=== PATIENT | male | born 1950 | race Caucasian/White ===

== ENCOUNTER 2024-10-21 12:12 | Day surgery (SDC) | payer MEDICARE, SELFPAY ==
--- OUTSIDE RECORDS SUMMARY | 2024-09-30 13:50 | XMS_ITS | Continuity of Care Document ---
Author Organization [facility] Address [address] [place] [address]- Care Team Providers Care Geodetic Survey Director Name Role Phone Bella Davidson MD Primary Care Physician [phone] Encounter [facility] Date(s): 04/09/24 - 09/13/[address] [address]- Attending Physician: Yuli Logan DO Admitting Physician: Yuli Logan DO Encounter Type: Preadmit Daystay Allergies, Adverse Reactions, Alerts No Known Medication Allergies Immunizations Given and Recorded Vaccine Date Status Refusal Reason influenza virus vaccine, inactivated 07/01/23 Juan rded influenza virus vaccine, inactivated 06/09/21 Juan rded influenza virus vaccine, inactivated 06/26/18 Give n influenza virus vaccine, inactivated 09/10/17 Give n SARS-CoV-2 mRNA ([id number]-[id number]-zymbv) vax 02/19/22 Recorded SARS-CoV-2 (COVID-19) mRNA BNT-162b2 vac 06/09/21 Recorded SARS-CoV-2 (COVID-19) mRNA BNT-162b2 vac 1 11/08/20 Recorded SARS-CoV-2 (COVID-19) mRNA BNT-162b2 vac 2 10/18/20 Recorded pneumococcal 23-valent vaccine 11/25/20 Given tetanus/diphtheria/pertussis, acel(Tdap) 03/03/20 Given Zoster Vaccine Live 12/11/19 Recorded Zoster Vaccine Live 10/11/19 Recorded pneumococcal 13-valent vaccine 10/15/19 Given pneumococcal 13-valent vaccine 11/30/15 Given Afluria (oldterm) 10/24/16 Given Fluzone Preservative-Free (oldterm) 06/01/15 Given pneumococcal 7-valent vaccine 08/28/12 Recorded Adacel (Tdap) (oldterm) 12/31/09 Recorded 1Result Comment: given at [facility] 2Result Comment: given at [facility] Medications metFORMIN 500 mg oral tablet 1 tablet, By Mouth, 2 times a day, # 180 tablet, 1 Refills, Maintenance, 07/24/24 10:58:00 AM EST, [facility] [id number], 177.8, cm, 06/10/24 10:44:00 EDT, Height Start Date: 07/24/24 Status: Ordered Quantity: 180.0 Unit: tablet Repeat number: 1 omega-3 polyunsaturated fatty acids ethyl esters 1000 mg oral capsule TAKE 1 CAPSULE DAILY., 05/20/13 8:06:00 AM EDT Start Date: 05/20/13 Status: Ordered Repeat number: 1 ONE TOUCH VERIO TEST STRIP ONE TOUCH VERIO TEST STRIP, See Instructions, # 100 Unknown, 5 Refills, Maintenance, TEST 3 TIMES DAILY AND NEEDED E11.9, 09/23/23 10:46:00 AM EST, 177.8, cm, 02/19/23 10:28:00 EDT, Height Start Date: 09/23/23 Status: Ordered Quantity: 100.0 Unit: Unknown Repeat number: 1 OneTouch Verio Lancets See Instructions, # 100 each, Refills 6, Tot. Refills 6, Maintenance, Check blood sugars 3 times daily and prn E11.9, 09/04/24 9:29:00 AM EST, Compound, 177.8, cm, 06/10/24 10:44:00 EDT, Height Start Date: 09/04/24 Status: Ordered Quantity: 100.0 Unit: each Repeat number: 7 OneTouch Verio Test Strips See Instructions, # 300 each, Refills 3, Tot. Refills 3, Maintenance, TEST 3 TIMES DAILY AND PRN E11.9, 09/18/22 8:09:00 AM EST, Compound, 177.8, cm, 08/02/22 11:13:00 EST, Height Start Date: 09/18/22 Status: Ordered Quantity: 300.0 Unit: each Repeat number: 4 PEG-[id number] with Electrolytes Lemon (Eqv-NuLYTELY) oral powder for reconstitution 240 mL, By Mouth, Every 10 minutes, # 1 each, 0 Refills, Maintenance, 04/09/24 12:28:00 PM EDT, REC Powder, [facility]/pharmacy #[id number], Partial fill upon patient request if the prescription is for a schedule II opioid drug., 240 mL By Mouth Every 10 minutes, 177.8, cm, 03/25/24 10:36:00 EDT, Height Start Date: 04/09/24 Status: Ordered Quantity: 1.0 Unit: each Repeat number: 1 Vitamin C 1000 mg oral tablet 1 tablet = 1,000 mg, By Mouth, Daily, # 30 tablet, 0 Refills, Maintenance, 07/01/20 8:47:00 AM EST,Tablet, Partial fill upon patient request Start Date: 07/01/20 Status: Ordered Quantity: 30.0 Unit: tablet Repeat number: 1 Vitamin D3 1000, By Mouth, Daily, 0 Refills, Maintenance, 08/22/17 9:49:51 AM EST Start Date: 08/22/17 Status: Ordered Repeat number: 1 Problem List Condition Confirmation Course Effective Dates Status Health St atus Informant Hallux rigidus Confirmed Active Adhesive capsulitis of right shoulder Confirmed Active Benign localized hyperplasia of prostate Confirmed Active Former tobacco use 1 Confirmed Active Foreign body in foot Confirmed Active Esophageal reflux Confirmed Active History of basal cell cancer Confirmed Active Male erectile disorder Confirmed Active Cataract, nuclear Confirmed Active Osteopenia Confirmed Active Type 2 diabetes mellitus Confirmed Active Vitamin d deficiency Confirmed Active 1quit 38 Social History Social History Type Response Smoking Status Former smoker; Tobac co user in household: No; Type: Cigarettes; Other: quit over 20 yrs ago; entered on: 08/22/17 Sex Sex Representation Male (finding) Patient Care team information Care Team Personnel Name: Bella Davidson MD Position: [facility] Physician - Primary Care Member Role: PCP Address: [address] [place] [address] [place] [address]- Telecom: Care Team Related Persons Name: SEMAJ SHRESTHA Insurance Providers Guarantor name: FERNANDO PENARAMAN Health Plan Information #: 1 Payer: NA Member Number: [id number] Policy Number: NA Group Number: [id number] Health Plan Information #: 2 Payer: NA Member Number: [id number] Policy Number: NA Group Number: [id number]
--- OUTSIDE RECORDS SUMMARY | 2024-09-30 13:51 | XMS_ITS | Continuity of Care Document ---
Author Organization [facility] Address [address] [place] [address]- Care Team Providers Care Community Organization Aide Name Role Phone Bella Davidson MD Primary Care Physician Encounter 09/08/24 - 09/15/24 [facility] [address], [address] [place] [address]- Attending Physician: Bella Davidson MD Admitting Physician: Bella Davidson MD Referring Physician: Bella Davidson MD Encounter Type: OutPatient One Time Allergies, Adverse Reactions, Alerts No Known Medication Allergies Immunizations Given and Recorded Vaccine Date Status Refusal Reason influenza virus vaccine, inactivated 07/01/23 Juan rded influenza virus vaccine, inactivated 06/09/21 Juan rded influenza virus vaccine, inactivated 06/26/18 Give n influenza virus vaccine, inactivated 09/10/17 Give n SARS-CoV-2 mRNA ([id number]-ewdaw) vax 02/19/22 Recorded SARS-CoV-2 (COVID-19) mRNA BNT-162b2 vac 06/09/21 Recorded SARS-CoV-2 (COVID-19) mRNA BNT-162b2 vac 1 11/08/20 Recorded SARS-CoV-2 (COVID-19) mRNA BNT-162b2 vac 2 10/18/20 Recorded pneumococcal 23-valent vaccine 11/25/20 Given tetanus/diphtheria/pertussis, acel(Tdap) 03/03/20 Given Zoster Vaccine Live 12/11/19 Recorded Zoster Vaccine Live 10/11/19 Recorded pneumococcal 13-valent vaccine 10/15/19 Given pneumococcal 13-valent vaccine 11/30/15 Given Afluria (oldterm) 06/04/16 Given Fluzone Preservative-Free (oldterm) 06/01/15 Given pneumococcal 7-valent vaccine 08/28/12 Recorded Adacel (Tdap) (oldterm) 12/31/09 Recorded 1Result Comment: given at [facility] 2Result Comment: given at [facility] Medications metFORMIN 500 mg oral tablet 1 tablet, By Mouth, 2 times a day, # 180 tablet, 1 Refills, Maintenance, 07/24/24 10:58:00 AM EST, [id number], 177.8, cm, 06/10/24 10:44:00 EDT, Height Start [...] Maintenance, 04/09/24 12:28:00 PM EDT, REC Powder, [id number], Partial fill upon patient request if [...] Vitamin d deficiency Confirmed Active 1quit 38 Results Radiology Reports * Exam Date Time Procedure Performing Provider Status 09/08/24 9:36 AM Shoulder Min 2 Views Right Simard, Chr istine; Auth (Verified) Notes: (Shoulder Min 2 Views Right) Reason For Exam: Pain RESULT: Shoulder Min 2 Views Right Shoulder Min 2 Views Right, 2 views Reason: Pain COMPARISON: None. FINDINGS: No fracture or dislocation. Mild glenohumeral joint space narrowing and marginal spurring. Mild degenerative changes of the AC joint. The portion of the clavicle included on the exam is normal. Linear calcification superolateral to the right humeral head consistent with calcific tendinitis and/or ascites seen on the externally rotated review. IMPRESSION: Mild degenerative change right shoulder without acute fracture or dislocation seen. Minimal calcific tendinitis and/or bursitis. WSN: [id number] Ordering Physician: Bella Davidson Dictated By: Harshal Ngo MD, V Dictated Date/Time: 09/08/24 10:13 a Reviewed By: Harshal Ngo MD, V Signed By: Harshal Ngo MD, V Signed Date/Time: 09/08/24 10:13 am Transcribed By: BHAVIK Transcribed Date/Time: 09/08/24 10:11 am Social History Social History Type Response Smoking Status Former smoker; Tobac co user in household: No; Type: Cigarettes; Other: quit over 20 yrs ago; entered on: 08/22/17 Sex Sex Representation Male (finding) Patient Care team information Care Team Personnel Name: Bella Davidson MD Position: S Physician - Primary Care Member Role: PCP Address: [address] [place] [address] Telecom: Care Team Related Persons Name: SEMAJ SHRESTHA Insurance Providers Guarantor name: FERNANDO REARDON Health Plan Information #: 1 Payer: NA Member Number: [id number] Policy Number: JANEEN Group Number: [id number] Health Plan Information #: 2 Payer: NA Member Number: [id number] Policy Number: JANEEN Group Number: NA
--- OUTSIDE RECORDS SUMMARY | 2024-09-30 13:51 | XMS_ITS ---
Author Organization [facility] Address [address] [place] [address] Care Team Providers Care Betting Agency Manager Name Role Phone Bella Davidson M.D. Primary Care Provider Dung Ramirez Jr Unavailable ALLERGIES No Known Allergies REASON FOR VISIT Patient presents today for a recall colonoscopy MEDICATIONS Medication SIG (Take, Route, Frequency, Duration) Notes Start Date End Date Status MiraLax (colon prep) 17 GM/SCOOP mixed with Gatorade or Crystal Light Orally begin at 5:00 p.m. the day before the procedure for 1 day 09/30/2024 Active metFORMIN HCl Active Vitamin D Active Vitamin C Active Fish Oil Active SOCIAL HISTORY Tobacco Use: Social History Observation Description Date Details (start date - stop date) Never Smoker NA - NA Sex Assigned At : Social History Observation Description Sex Assigned At Unknown Tobacco Use/Smoking Question Answer Notes Patient is a nonsmoker Alcohol Screen Question Answer Notes Did you have a drink contain ing alcohol in the past year? Yes How often did you have a dri nk containing alcohol in the past year? 2 to 4 times a month (2 points) How many drinks did you have on a typical day when you were drinking in the past year? 3 or 4 drinks (1 point) Points 3 Interpretation Negative PROBLEMS Problem Type ICD Code Onset Dates Problem Status W/U Status Risk SNOMED Code Notes Problem Colon cancer screening (Z12.11) Active confirmed 163675958 VITAL SIGNS BMI 26.69 kg/m2 09/30/2024 Blood pressure systolic 111 mm Hg 09/30/19 25 Blood pressure diastolic 11 mm Hg 025 Height 70 in 09/30/2024 Weight 186 lbs 09/30/2024 Encounters Encounter Location Date Provider Diagnosis [facility] [address] [place] [address] 09/30/2024 Dung Albright Jr Colon cancer screening Z12.11 ASSESSMENTS Encounter Date Diagnosis Assessment Notes Treatment Notes Treatment Clinical Notes 09/30/2024 Colon cancer screening (ICD-10 - Z12.11) Colonoscopy discharge material was printed PLAN OF TREATMENT Medication Medication Name Sig Start Date Stop Date Notes MiraLax (colon prep) 17 GM/SCOOP mixed with Gatorade or Crystal Light Orally begin at 5:00 p.m. the day before the procedure for 1 day 09/30/2024 Treatment Notes Assessment Notes Colon cancer screening Colonoscopy disch arge material was printed Future Test Test Name Order Date COLONOSCOPY 09/30/2024 Next Appt Details Provider Name:Dung daniels Jr, 10/21/2024 01:50:00 PM, [address] [place] [address] , [place], [place], [id number],
--- OUTSIDE RECORDS SUMMARY | 2024-09-30 13:51 | XMS_ITS | Patient Health Record ---
Author Organization [facility] Address [address] [place] [address] Care Team Providers Care Ip Litigation Paralegal Name Role Phone Bella Davidson M.D. Primary Care Provider Dung Ramirez Jr Unavailable [phone] ALLERGIES No Known Allergies REASON FOR REFERRAL No Information MEDICATIONS Medication SIG (Take, Route, Frequency, Duration) [...] Problem Colon cancer screening (Z12.11) Active confirmed [id number] VITAL SIGNS Blood pressure diastolic 11 mm Hg 09/30/2024 Height 70 in 09/30/2024 Blood pressure systolic 111 mm Hg 09/30/2024 Weight 186 lbs 09/30/2024 BMI 26.69 kg/m2 09/30/2024 Encounters Encounter Location Date Provider Diagnosis [facility] [address] [place] [address] 09/30/2024 uDng Albright Jr Colon cancer screening Z12.11 ASSESSMENTS Encounter Date Diagnosis Assessment Notes Treatment Notes Treatment Clinical Notes 09/30/2024 Colon cancer screening (ICD-10 - Z12.11) Colonoscopy discharge material was printed PLAN OF TREATMENT Future Test Test Name Order Date COLONOSCOPY 09/30/2024 Next Appt Details Provider Name:Dung daniels Jr, 10/21/2024 01:50:00 PM, [address] [place] [address] , [place], [place], [id number], Insurance Providers Payer Name Payer Address Payer Phone Subscriber Number Group Number Insured Name Patient Relationship to Insured Coverage Start Date Coverage End Date [facility] [address] [place], [place] [phone] [id number] FERNANDO REARDON Self - patient is the insured MEDICAL (GENERAL) HISTORY Medical History History ICD Code hx of kidney stone type II diabetes Surgical History Surgery Date(Month/Year) knee hernia repair foot surgery right /object removed from foot
--- OUTSIDE RECORDS SUMMARY | 2024-09-30 13:51 | XMS_ITS | Clinical Summary ---
Author Organization [facility] Address [address] [place] [address] Care Team Providers Care Fans Clerk Name Role Phone Unavailable Primary Care Provider Unavailabl e Social History Tobacco Use Types Packs/Day Years Used Date Smoking Tobacco: Never Assessed Sex and Gender Information Value Date Recorded Sex Assigned at Not on file Legal Sex Male 10:15 AM EST Gender Identity Not on file Sexual Orientation Not on file Plan of Treatment Health Maintenance Due Date Last Done Comments Colorectal Cancer: COLONOSCO PY Screening every 10 yrs (or Modifier) 1948 Depression: Screening Annual ly using PHQ-2/9 in Adults 18 yrs or above (or HM Modifier)([facility]) 1966 Hepatitis C Virus Infection in Adolescents and Adults: Screening (or Modifier) ([facility]) 1966 SDOH Screening Reminder: Lakshmi gaitan for all adults ([facility]) 1966 Tobacco Smoking Cessation: i n Adults excluding Women: Behavioral and Pharmacotherapy Interventions ([facility]) 1966 Lipid Screening: Every 5 yrs for Men aged 35+ (or HM Modifier) ([facility]) 1984 Colorectal Cancer Screening 45 -75 Yrs (or HM Modifier) 1993 Colorectal Cancer: FLEXIBLE SIGMOIDOSCOPY Screening every 5 yrs 1993 Colorectal Cancer: Fecal Immunochemical Test (FIT) Annually [facility] 1993 Colorectal Cancer: High-sens itivity gFOBT Screening Annually [facility] 1993 Colorectal Cancer: Stool Col oguard Screening every 3 yrs 1993 Colorectal Cancer:CT Colonog alonso Screening every 5 yrs 1993 Zoster/Shingles Vaccine Seri es Screening: Adults aged 18+ yrs (or HM Modifiers)([facility]) (1 of 2) 1998 Pneumococcal Vaccination Scr eening: Patients 65+ yrs of age ([facility]) (2 of 2 - PCV) 11/25/2021 11/25/2020 RSV Vaccines (1 - 1-dose 75+ series) 11/03/2023 Flu Vaccination: Ages 65+: Y early High Dose Recommended (or Modifier)([facility]) 03/12/2024 COVID-19 Vaccine Screening: Initial Series and Booster Status ([facility]) ( - 2023- season) 2024 06/09/2021, 11/08/2020, 10/18/2020 DTaP/Tdap/Td Vaccines ([facility]) (3 - Td or Tdap) 03/03/2030 03/03/2020, 12/31/2009 Medical Devices Not on file Insurance [facility] MEDICARE
--- OUTSIDE RECORDS SUMMARY | 2024-09-30 13:51 | XMS_ITS ---
Author Organization [facility] Address [address] [facility] [place] [address] Care Team Providers Care Referral Clerk Name Role Phone Bella Davidson Primary Care Provider Sahra Scott Unavailable [phone] Allergies No Known Allergies REASON FOR VISIT Post-op Medications Medication SIG (Take, Route, Frequency, Duration) Notes Start Date End Date Status Ibuprofen 800 MG 1 tablet Orally Thre e times a day as needed for pain post op for 10 days 03/30/2024 Active Vitamin D 25 MCG (1000 UT) 1 tablet Orally Once a day Active Neurontin 300 MG 1 capsule Orally Onc e a day at night as needed for pain post op for 10 days 03/30/2024 Active Vitamin E 1000 UNIT as directed Orally Not-Taking Keflex 500 MG 1 capsule Orally cydney ry 12 hrs for 7 days 03/30/2024 Not-Taking Vitamin C Active metFORMIN HCl 1000 MG 1 tablet with a me al Orally Once a day Active Fish Oil 1000 MG 1 capsule Orally Thr ee times a day Active Social History Tobacco Use: Social History Observation Description Date Details (start date - stop date) Former Smoker NA - NA Tobacco Use/Smoking Question Answer Notes Are you a: former smoker Additional Findings: Tobacco Non-User Current no n-smoker Alcohol Screen Question Answer Notes Did you have a drink containing alcohol in the p ast year? Yes Points 0 Interpretation Negative Tobacco use other than smoking: Question Answer Notes Are you an other tobacco user? No Vital Signs Height 5ft 10in in 04/27/2024 Weight 184 lbs 04/27/2024 BMI 26.4 kg/m2 04/27/2024 Encounters [facility]counter [facility] Date [facility] [address] [place] [address] [place] [address] 04/27/2024 Sahra Montoya Foreign body in right foot, sequela S90.851S and Skin lesion L98.9 Assessments Encounter Date Diagnosis (ICD Code) Assessment Notes Treatment Notes Treatment Clinical Notes Section Notes 04/27/2024 Foreign body in right foot, sequela (ICD-10 - S90.851S) 04/27/2024 Skin lesion (ICD-10 - L98.9) Plan Of Treatment Pending Test Test Name Order Date X ray : Foot, right 3V 04/27/2024 Next Appt Details Follow Up: 1 Week, Reason: Procedure Notes * Category Sub-Category Detail Notes Dressing Change: Type: dry sterile karen ssing , a light compressive dressing Topical: bacitacin applied Progress Notes * Obed WOMACKDOB:1950 (73 yo M)Acc No.[id number]:04/27/2024 Progress Notes Patient:?ShantaObed Provider:?Sahra Montoya DPM :1950???Age:73 Y???Sex:Male Ashutosh e:04/27/2024 Address:[address] , [place], [place] Pcp:Bella Davidson Subjective: * Chief Complaints: * ???Post-op * HPI: ???Post-op:?The patient presents for post-op of?Right , Excision of skin lesion and , Deep foreign body excision.?Date of Surgery?:?04/22/2024 ?Current symptoms include?Pt denies fever, chills, nausea, calf pain, SOB, or increased anxiety, Pt states pain under control.? Pt presents PWB with surgical shoe and cane, relates minimal pain. Pt relates no issues. * ROS:?General/Constitutional:?Nausea?denies.?Vomiting?denies.?Hunger Thirst?denies.?Loss appetite?denies.?Chills?denies.?Fatigue?denies.?Fever?denies.?Night Sweats?denies.?Unexplained weight loss?denies.?Unexplained weight gain?denies.?HEENTM:?Dentures?admits.?Dizziness?denies.?Glasses/contacts?denies.?Retinopathy?de nies.?Blurred/double vision?denies.?TMJ?denies.?Discharge/drainage?denies.?Implants?denies.?Sore throat?denies.?Dental implants?admits.?Hard of hearing ?denies.?Difficulty chewing/swallowing/speaking?denies.?Nose bleeds?denies.?Sore mouth?denies.?Respiratory:?On Oxygen?denies.?Pneumonia/pleurisy?denies.?Bronchitis?denies.?Emphysema?denies.?C oughing?denies.?Cough blood?denies.?Shortness of breath?denies.?Wheezing?denies.?Cardiovascular:?Pacemaker?denies.?MVP?denies.?WPW?denies.?CHF?denies.?Heart attack?denies.?Septal defect?denies.?Rapid beat?denies.?Chest pain ?denies.?Atrial Fib.?denies.?Murmur/Palpitations?denies.?Gastrointestinal:?Hemorrhoids?denies.?Stomach/Abdominal pain?denies.?Dark blood stool?denies.?Irritable bowel ?denies.?Constipation?denies.?Diarrhea?denies.?Hematology:?Swelling?denies.?Clots?denies.?Varicose Veins?denies.?Bruising?denies.?Bleeding problem?denies.?Genitourinary:?Blood urine?denies.?Frequent/Painfu/urination/bladder control?denies.?Kidney stones?denies.?Infection (UTI)?denies.?Nephropathy?denies.?sex trans dis (STD)?denies.?Prostate?denies.?Musculoskeletal:?Hammertoes?admits.?Bunions?denies.?Back Pain?denies.?Muscle Cramps/ Resting?denies.?Muscle cramps / walking?denies.?Generalized aches and pains?denies.?Weakness?denies.?Integ.:?Rea?denies.?Scars?denies.?Corns/calluses?denies.?Ingrown nails?denies.?Painful nails?denies.?Open Sores?denies.?Rashes?denies.?Neurologic:?Difficulty sleeping?denies.?Brain disorder?denies.?Numbness?denies.?Balance trouble?denies.?Confusion?denies.?Fainting/blackouts?denies.?Tingling?denies.?Tr emors?denies.? * Medical History:? * Surgical History:?Hernia Rep air removal of foreign body rght midfoot P/B 04/22/24 * Hospitalization/Major Diagno stic Procedure:?No Hospitalization History. * Family History:?Mother: dece ased.?Father: .? * Social History:?Tobacco Use:?Tobacco Use/Smoking?Are you a:?former smoker ?Additional Findings: Tobacco Non-User?Current non-smoker ?Tobacco use other than smoking?Are you an other tobacco user??No ???Drugs/Alcohol:?Drugs?Have you used drugs other than those for medical reasons in the past 12 months??Yes ?Marijuana??Yes ?Alcohol Screen?Did you have a drink containing alcohol in the past year??Yes ?Points?0 ?Interpretation?Negative ???Miscellaneous:?Caffeine: yes. ?Exercise: one hour tread mill. ?Marital status: . ?Occupation: Retired. * Medications:?TakingVitamin C Fish Oil 1000 MG Capsule 1 capsule Orally Three times a daymetFORMIN HCl 1000 MG Tablet 1 tablet with a meal Orally Once a dayVitamin D 25 MCG (1000 UT) Tablet 1 tablet Orally Once a dayIbuprofen 800 MG Tablet 1 tablet Orally Three times a day as needed for pain post opNeurontin 300 MG Capsule 1 capsule Orally Once a day at night as needed for pain post opTaking Vitamin C Taking Fish Oil 1000 MG Capsule 1 capsule Orally Three times a dayTaking metFORMIN HCl 1000 MG Tablet 1 tablet with a meal Orally Once a dayTaking Vitamin D 25 MCG (1000 UT) Tablet 1 tablet Orally Once a dayTaking Ibuprofen 800 MG Tablet 1 tablet Orally Three times a day as needed for pain post opTaking Neurontin 300 MG Capsule 1 capsule Orally Once a day at night as needed for pain post opNot-Taking/PRNKeflex 500 MG Capsule 1 capsule Orally every 12 hrsVitamin E 1000 UNIT Capsule as directed Orally Medication List reviewed and reconciled with the patientNot-Taking/PRN Keflex 500 MG Capsule 1 capsule Orally every 12 hrsNot-Taking/PRN Vitamin E 1000 UNIT Capsule as directed Orally Medication List reviewed and reconciled with the patient * Allergies:?N.K.D.A.yes[Aller gies Verified] Objective: * Vitals:?Ht: 5ft 10in, Wt:184 , BMI:26.4, Shoe size: 11, Ht-cm: 177.8 cm, Wt-k.46 kg. * Examination: ???Dressing: ?APPEARANCE?Clean, dry, and intact, with dry to moist blood present, no malodor.?Dermatologic: ?SURGICAL SITE?Skin and Sutures intact, Incision edges are well aligned and adhered, CFT intact , No signs or symptoms consistent with infection , (+), Mild Pain on palpation/ecchymosis/edema, (-), erythema/hematoma/dehiscence/cellulitis.?X-Rays - IMAGING REPORT: ?Clinical Indication(s):?Evaluate Biomechanical Deformity.?Views:?3 views of Foot , RIGHT , AP , LAT , LO.?Findings:?normal bone and soft tissue density consistent for patients age and sex , no evidence of foreign body.?Fracture:?Negative fractures identified.? Assessment: * Assessment: 1.?Skin lesion - L98.9?2.?Fo reign body in right foot, sequela - S90.851S (Primary)? Plan: * Treatment: * Procedures:?Dressing Change::?Type:?dry sterile dressing , a light compressive dressing.?Topical:?bacitacin applied.? * Procedure Codes:?46648 X-RAY EXAM OF RIGHT FOOT 3V, Modifiers: 26 , RT * Preventive Medicine:? ??Counseling:?Post-op:?I reviewed with the patient the usual surgical post-op course. The patient is to call with any questions/complications, and will follow-up as scheduled, cast boot and cane with limited ambulation, perform ROM (3-4 times a day; 20-25 reps each) exercises at the foot joint and ankle, The Pt. was counseled on the x- rays, continued treatment options, and the importance of following all homecare instructions, Pt to continue to ice and elevate foot to help with post op swelling and pain.? * Follow Up:?1 Week * Images: * Sign off status: Completed true * Provider:?Sahra Montoya DPM Date:? Generated for Vishal jordan/Dipak/Mykel on:?09/30/2024 01:51 PM EST History and Physical Notes * HPI (History of Present Illness) Category Sub-Category Detail Notes Category Not es Post-op The patient presents for post-op of Right , Excision of skin lesion and , Deep foreign body excision Pt presents PWB with surgical shoe and cane, relates minimal pain. Pt relates no issues Current symptoms include Pt denies fever , chills, nausea, calf pain, SOB, or increased anxiety, Pt states pain under control Date of Surgery :: 04/22/2024 Examination Category Sub-Category Detail Notes Category Not es Dermatologic SURGICAL SITE Skin and Sutures intact, Incision edges are well aligned and adhered, CFT intact , No signs or symptoms consistent with infection , (+), Mild Pain on palpation/ecchymosis/edema, (-), erythema/hematoma/dehiscence/chelo lulitis X-Rays - IMAGING REPORT Findings: normal b one and soft tissue density consistent for patients age and sex , no evidence of foreign body Fracture: Negative fractures i dentified Views: 3 views of Foot , RI GHT , AP , LAT , LO Clinical Indication(s): Evaluate Biomech anical Deformity Dressing APPEARANCE Clean, dry, and intact, with dry to moist blood present, no malodor
--- OUTSIDE RECORDS SUMMARY | 2024-09-30 13:51 | XMS_ITS ---
Author Organization [facility] Address [address] [facility] [place] [address] Care Team Providers Care Coil Repair Technician Name Role Phone Bella Davidson Primary Care Provider Sahra Scott Unavailable [phone] REASON FOR VISIT per dr bradford Encounters Encounter Location Date Provider Diagnosis [address] [place] [address] 05/18/2024 Sahra Bradford Plan Of Treatment No Information Progress Notes * Obed WOMACKDOB:1950 (73 yo M)Acc No.[id number]:05/18/2024 PROGRESS NOTES Patient:?Obed WOMACK Provider:?Sahra Bradford DPM :1950???Age:73 Y???Sex:Male Ashutosh e:05/18/2024 [facility] [place] Pcp:Bella Davidson Subjective: * Chief Complaints: * ???1. Per dr bradford. * Medical History:? Objective: * Vitals:? Assessment: Plan: * Treatment: * Images: * The named appointment provid er may or may not be the originator of this progress note, and it is not deemed complete until electronically signed by the appointment provider. Sign off status: Pending * Provider:?Sahra Bradford DPM Date:?02/2024 Generated for Salinai julian/Dipak/eTransmitting on:?09/30/2024 01:50 PM EST
--- OUTSIDE RECORDS SUMMARY | 2024-09-30 13:51 | XMS_ITS | Patient Health Record ---
Author Organization [facility] Address [address] [facility] [place] [address] Care Team Providers Care [employer] Production Team Member Name Role Phone Bella Davidson Primary Care Provider Sahra Scott Unavailable [phone] Allergies No Known Allergies Results Component Value Reference Range Notes HEMOGLOBIN A1C (GLYCOHEMOGLO BIN) Reviewed date:12/19/2023 08:33:44 AM Interpretation: Performing Lab: Notes/Report: HEMOGLOBIN A1C % (HH) 6.8 HEMOGLOBIN A1C (GLYCOHEMOGLO BIN) Reviewed date:03/30/2024 11:24:04 AM Interpretation: Performing Lab: Notes/Report: HEMOGLOBIN A1C % (HH) 6.3 Reason For Referral No Information Medications Medication SIG (Take, Route, Frequency, Duration) Notes Start Date End Date Status Vitamin C Active Fish Oil 1000 MG 1 capsule Orally Thr ee times a day Active metFORMIN HCl 1000 MG 1 tablet with a me al Orally Once a day Active Vitamin D 25 MCG (1000 UT) 1 tablet Orally Once a day Active Ibuprofen 800 MG 1 tablet Orally Thre e times a day as needed for pain post op for 10 days 03/30/2024 Active Neurontin 300 MG 1 capsule Orally Onc e a day at night as needed for pain post op for 10 days 03/30/2024 Active Keflex 500 MG 1 capsule Orally cydney ry 12 hrs for 7 days 03/30/2024 Not-Taking Vitamin E 1000 UNIT as directed Orally Not-Taking Social History Tobacco Use: Social History Observation [...] Are you an other tobacco user? 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 Vital Signs Height 5ft 10in in 05/04/2024 Weight 180 lbs 05/04/2024 BMI 25.82 kg/m2 05/04/2024 Encounters Encounter Location Date Provider Diagnosis [facility] [address] [place] [address] 04/22/2024 Sahra Perica [address] [address] 12/19/2023 Sahra Perica Abscess of right liane t L02.611 ; Foreign body in right foot, sequela S90.851S ; Pain in right foot M79.671 ; Pain in right ankle and joints of right foot M25.571 ; Bursitis of right foot M77.51 ; Osteoarthritis of midtarsal joint of right foot M19.071 and Type 2 diabetes mellitus with polyneuropathy E11.[address] [address] 12/30/2023 Sahra Perica Abscess of right liane t L02.611 ; Foreign body in right foot, sequela S90.851S ; Pain in right foot M79.671 ; Osteoarthritis of midtarsal joint of right foot M19.071 and Type 2 diabetes mellitus with polyneuropathy E11.[address] [address] 03/30/2024 Sahra Perica Abscess of right liane t L02.611 ; Foreign body in right foot, sequela S90.851S ; Pain in right foot M79.671 ; Osteoarthritis of midtarsal joint of right foot M19.071 and Type 2 diabetes mellitus with polyneuropathy E11.[address] [address] 04/27/2024 Sahra Perica Foreign body in righ t foot, sequela S90.851S and Skin lesion L98.9 [facility] [employer] [address] [place] [address] 05/04/2024 Sahra Perica Foreign body in righ t foot, sequela S90.851S and Skin lesion L98.9 [facility] [address] [place] [address] 12/19/2023 Sahra Perica [facility] [place] [address] [place] [address] 12/19/2023 Sahra Perica [facility] [employer] [address] [facility] [place] [address] 12/30/2023 Sahra Perica [facility] [place] [address] 01/01/2024 Sahra Perica [facility] [address] [place] [address] 02/18/2024 Ashra Perica [facility] [address] [place] [address] 03/25/2024 Sahra Perica [facility] [address] [address] 03/30/2024 Sahra Perica [facility] [place] [address] 04/23/2024 Sahra Perica Assessments Encounter Date Diagnosis (ICD Code) Assessment Notes Treatment Notes Treatment Clinical Notes Section Notes 12/19/2023 Abscess of right foot (ICD-10 - L02.611) Patient Educated with: WOUND CARE INSTRUCTIONS. pdf (WOUND CARE INSTRUCTIONS. pdf) 12/19/2023 Foreign body in right foot, sequela (ICD-10 - S90.851S) 12/30/2023 Abscess of right foot (ICD-10 - L02.611) 12/30/2023 Foreign body in right foot, sequela (ICD-10 - S90.851S) 03/30/2024 Abscess of right foot (ICD-10 - L02.611) 04/27/2024 Skin lesion (ICD-10 - L98.9) 04/27/2024 Foreign body in right foot, sequela (ICD-10 - S90.851S) 05/04/2024 Foreign body in right foot, sequela (ICD-10 - S90.851S) 05/04/2024 Skin lesion (ICD-10 - L98.9) 03/30/2024 Foreign body in right foot, sequela (ICD-10 - S90.851S) 03/30/2024 Pain in right foot (ICD-10 - M79.671) 12/30/2023 Pain in right foot (ICD-10 - M79.671) 12/19/2023 Pain in right foot (ICD-10 - M79.671) 12/30/2023 Osteoarthritis of midtarsal joint of right foot (ICD-10 - M19.071) 03/30/2024 Osteoarthritis of midtarsal joint of right foot (ICD-10 - M19.071) 12/19/2023 Pain in right ankle and joints of right foot (ICD-10 - M25.571) 03/30/2024 Type 2 diabetes mellitus with polyneuropathy (ICD-10 - E11.42) 12/30/2023 Type 2 diabetes mellitus with polyneuropathy (ICD-10 - E11.42) 12/19/2023 Bursitis of right foot (ICD-10 - M77.51) 12/19/2023 Osteoarthritis of midtarsal joint of right foot (ICD-10 - M19.071) 12/19/2023 Type 2 diabetes mellitus with polyneuropathy (ICD-10 - E11.42) 12/19/2023 Other Patient Educated with: WOUND CARE INSTRUCTIONS. pdf (WOUND CARE INSTRUCTIONS. pdf) 12/30/2023 Other Plan Of Treatment Pending Test Test Name Order Date X ray : Foot, right 3V 12/19/2023 X ray : Foot, right 3V 03/30/2024 X ray : Foot, right 3V 04/27/2024 Insurance Providers Payer Name Payer Address Payer Phone Subscriber Number Group Number Insured Name Patient Relationship to Insured Coverage Start Date Coverage End Date [facility] [employer] [address] [place] [address] [id number] Obed Womack Self - patient is the insured Medical (General) History Medical History History ICD Code Back,Hip,and Knee pain Diabetic covid-19 Lyme disease Surgical History Surgery Date(Month/Year) Hernia Repair removal of foreign body rght midfoot P/B 04/22/24
--- OUTSIDE RECORDS SUMMARY | 2024-09-30 13:51 | XMS_ITS ---
Author Organization [facility] geovany [place] Address [address] [place] [address] Care Team Providers Care Savings Teller Name Role Phone Bella Davidson Primary Care Provider Sahra Scott Unavailable [phone] Allergies No Known Allergies REASON FOR VISIT Post-op Medications Medication SIG (Take, Route, Frequency, Duration) Notes Start Date End Date Status Vitamin D 25 MCG (1000 UT) 1 [...] E 1000 UNIT as directed Orally Not-Taking Vitamin C Active Fish Oil 1000 MG 1 capsule Orally Thr ee times a day Active metFORMIN HCl 1000 MG 1 tablet with a me al Orally Once a day Active Social History Tobacco Use: [...] No Vital Signs Height 5ft 10in in 05/04/2024 Weight 180 lbs 05/04/2024 BMI 25.82 kg/m2 05/04/2024 Encounters Encounter Location Date Provider Diagnosis [facility] [address] [place] [address] [place] [address] 05/04/2024 Sahra Montoya Foreign body in right foot, sequela S90.851S and Skin lesion L98.9 Assessments Encounter Date Diagnosis (ICD Code) Assessment Notes Treatment Notes Treatment Clinical Notes Section Notes 05/04/2024 Foreign body in right foot, sequela (ICD-10 - S90.851S) 05/04/2024 Skin lesion (ICD-10 - L98.9) Plan Of Treatment Next Appt Details Follow Up: prn, Reason: Procedure Notes * Category Sub-Category Detail Notes Dressing Change: Type: dry sterile karen ssing , a light compressive dressing Topical: bacitacin applied Removal of: sutures performed wi th sterile forceps/suture scissors or #15 blade, area cleaned with alcohol prior to removal , steri-strips applied Progress Notes * Obed WOMACKDOB:1950 (73 yo M)Acc No.[id number]:05/04/2024 PROGRESS NOTES Patient:?Obed Womack Provider:?Sahra Montoya DPM :1950???Age:73 Y???Sex:Male Ashutosh e:05/04/2024 Address[address] , [id number] Pcp:Bella Davidson Subjective: * Chief Complaints: * ???Post-op * HPI: ???Post-op:?The patient presents for post-op of?Right , Excision of skin lesion and , Deep foreign body excision.?Date of Surgery?:?04/22/2024 ?Current symptoms include?Pt denies fever, chills, nausea, calf pain, SOB, or increased anxiety, Pt states pain under control.? Pt presents WB with surgical shoe, relates minimal pain. Pt states his dressing came loose and his changed it, no other issues. * ROS:?General/Constitutional:?Nausea?denies, denies.?Vomiting?denies, denies.?Hunger Thirst?denies, denies.?Loss appetite?denies, denies.?Chills?denies, denies.?Fatigue?denies, denies.?Fever?denies, denies.?Night Sweats denies, denies.?Unexplained weight loss?denies, denies.?Unexplained weight gain?denies, denies.?HEENTM:?Dentures?admits, admits.?Dizziness?denies, denies.?Glasses/contacts?denies, denies.?Retinopathy?denies, denies.?Blurred/double vision?denies, denies.?TMJ?denies, denies.?Discharge/drainage?denies, denies.?Implants?denies, denies.?Sore throat?denies, denies.?Dental implants?admits, admits.?Hard of hearing ?denies, denies.?Difficulty chewing/swallowing/speaking?denies, denies.?Nose bleeds?denies, denies.?Sore mouth?denies, denies.?Respiratory:?On Oxygen?denies, denies.?Pneumonia/pleurisy?denies, denies.?Bronchitis?denies, denies.?Emphysema?denies, denies.?Coughing?denies, denies.?Cough blood?denies, denies.?Shortness of breath?denies, denies.?Wheezing?denies, denies.?Cardiovascular:?Pacemaker?denies, denies.?MVP?denies, denies.?WPW?denies, denies.?CHF?denies, denies.?Heart attack?denies, denies.?Septal defect?denies, denies.?Rapid beat?denies, denies.?Chest pain ?denies, denies.?Atrial Fib.?denies, denies.?Murmur/Palpitations?denies, denies.?Gastrointestinal:?Hemorrhoids?denies, denies.?Stomach/Abdominal pain?denies, denies.?Dark blood stool?denies, denies.?Irritable bowel ?denies, denies.?Constipation?denies, denies.?Diarrhea?denies, denies.?Hematology:?Swelling?denies, denies.?Clots?denies, denies.?Varicose Veins?denies, denies.?Bruising?denies, denies.?Bleeding problem?denies, denies.?Genitourinary:?Blood urine?denies, denies.?Frequent/Painfu/urination/bladder control?denies, denies.?Kidney stones?denies, denies.?Infection (UTI)?denies, denies.?Nephropathy?denies, denies.?sex trans dis (STD)?denies, denies.?Prostate?denies, denies.?Musculoskeletal:?Hammertoes?admits, admits.?Bunions?denies, denies.?Back Pain?denies, denies.?Muscle Cramps/ Resting?denies, denies.?Muscle cramps / walking?denies, denies.?Generalized aches and pains?denies, denies.?Weakness?denies, denies.?Integ.:?Rea?denies, denies.?Scars?denies, denies.?Corns/calluses?denies, denies.?Ingrown nails?denies, denies.?Painful nails?denies, denies.?Open Sores?denies, denies.?Rashes?denies, denies.?Neurologic:?Difficulty sleeping?denies, denies.?Brain disorder?denies, denies.?Numbness?denies, denies.?Balance trouble?denies, denies.?Confusion?denies, denies.?Fainting/blackouts?denies, denies.?Tingling?denies, denies.?Tremors?denies, denies.? * Medical History:? * Surgical History:?Hernia Rep air removal of foreign body rght midfoot P/B 04/22/24 * Hospitalization/Major Diagno stic Procedure:?Denies Past Hospitalization * Family History:?Mother: dece ased.?Father: .? * [...] patient * Allergies:?N.K.D.A.yes[Aller gies Verified] Objective: * Vitals:?Ht:5ft 10in, Wt:180, BMI:25.82, Shoe size:11, BS:135, Ht-cm: 177.8 cm, Wt-k.65 kg. * ???Past Orders: ???Lab:HEMOGLOBIN A1C (GLYCO HEMOGLOBIN) (Order Date - 03/30/2024) (Collection Date - 03/30/2024) ? Value Reference Range ?HEMOGLOBIN A1C % (HH) 6.3 * Examination: ???Ophthalmology Referral: ?DIABETES EYE EXAM?Dressing: ?APPEARANCE?Clean, dry, and intact, with dry to moist blood present, no malodor.?Dermatologic: ?SURGICAL SITE?Skin and Sutures intact, Incision edges are well aligned and adhered, CFT intact , No signs or symptoms consistent with infection , no?Pain on palpation/ecchymosis/edema, (-), erythema/hematoma/dehiscence/cellulitis.? Assessment: * Assessment: 1.?Foreign body in right liane t, sequela - Q16.921S (Primary)?2.?Skin lesion - L98.9? Plan: * Treatment: * Procedures:?Dressing Change::?Type:?dry sterile dressing , a light compressive dressing.?Topical:?bacitacin applied.?Removal of:?sutures performed with sterile forceps/suture scissors or #15 blade, area cleaned with alcohol prior to removal , steri-strips applied.? * Procedure Codes:? * Preventive Medicine:? ??Counseling:?Biopsy:?The patient was counseled on the biopsy results and the treatment options available, A copy of the biopsy results was distributed to the patient for their records.?Post-op:?I reviewed with the patient the usual surgical post-op course. The patient is to call with any questions/complications, and will follow-up as needed, return to accom firm-soled shoe for stability and support, gradually increase activity to tolerance, Pt can begin showering per usual starting tomorrow, can apply abx ointment to incisions to help with scarring.? * Follow Up:?prn * Images: * Sign off status: Completed true * Provider:?Sahra Montoya DPM Date:? Generated for Vishal jordan/Dipak/Mykel on:?09/30/2024 01:50 PM EST History and Physical Notes * HPI (History of Present Illness) Category Sub-Category Detail Notes Category Not es Post-op The patient presents for post-op of Right , Excision of skin lesion and , Deep foreign body excision Pt presents WB with surgical shoe, relates minimal pain. Pt states his dressing came loose and his changed it, no other issues Current symptoms include Pt denies fever , chills, nausea, calf pain, SOB, or increased anxiety, Pt states pain under control Date of Surgery :: 04/22/2024 Examination Category Sub-Category Detail Notes Category Not es Dermatologic SURGICAL SITE Skin and Sutures intact, Incision edges are well aligned and adhered, CFT intact , No signs or symptoms consistent with infection , no Pain on palpation/ecchymosis/edema, (-), erythema/hematoma/dehiscence/ cellulitis Ophthalmology Referral DIABETES EYE EXAM Diabeti c Retinopathy Screening:: No Findings of Diabetic Eye Exam:: no retin opathy Dressing APPEARANCE Clean, dry, and intact, with dry to moist blood present, no malodor
[2024-10-19 14:36] VITALS: BMI 26.7
[2024-10-19 15:15] VITALS: BMI 24.8
--- NOTE | 2024-10-20 09:08 | P.CONAN_ITS ---
Documented by User: Krystle Kovacs NP 10/20/24 09:08 HPI - Anesthesia Eval Consult details Narrative: 73yo M for Colonoscopy [facility] Past Medical History Medical History Vitamin D deficiency Osteopenia BPH (benign prostatic hyperplasia) Diabetes mellitus Nephrolithiasis Surgical History Surgical History Hx of knee surgery Hx of hernia repair Hx of foot surgery Hx of colonoscopy (2019) Social History Social History Are you a primary family day care provider to a significant other at home: No Do you presently have visiting nurse or other home services: No Patient Tobacco Use Status: Former Tobacco user Tobacco use type: Cigarette Smoked in Last 30 Days: No Use of substances other than those prescribed or required for medical reasons: No Have you been hit, kicked, punched, or otherwise hurt by someone within the past year? If so, by whom?: No Are you DNR?: No Advance Directives: No (will bring dos) Advance Directives Information Provided: Yes Advance Directives on File: No Recently lost weight without trying: No Poor oral hygiene: No (permanent implants) Meds Allergies Allergy/AdvReac Type Severity Reaction Status Date / Time No Known Allergies Allergy Verified 10/19/24 14:32 Home Medications ?Medication ?Instructions ?Recorded ?Confirmed ?Last Taken ?Type ascorbic acid (vitamin C) 1,000 mg 1,000 mg PO DAILY 10/19/24 10/19/24 Unknown History tablet (Vitamin C) cholecalciferol (vitamin D3) 25 25 mcg PO DAILY 10/19/24 10/19/24 Unknown History mcg (1,000 unit) tablet (Vitamin D3) metformin 500 mg tablet 500 mg PO BID 10/19/24 10/19/24 Unknown History omega 6-tqc-grl-fish oil 1,000 mg 1 cap PO DAILY 10/19/24 10/19/24 10/13/24 History (120 mg-180 mg) capsule (Fish Oil) Exam Height,Weight and Vital Signs: Height 5 ft 10 in Weight 78.471 kg Assessment and Plan Assessment Anesthesia Assessment: Chart Reviewed Documented by User: Esperanza Angelo MD 10/21/24 12:37 PMFSH Past Medical History Medical History Vitamin D deficiency Osteopenia BPH (benign prostatic hyperplasia) Diabetes mellitus Nephrolithiasis Family History Family history of problems with anesthesia: No Surgical History Surgical History Hx of knee surgery Hx of hernia repair Hx of foot surgery Hx of colonoscopy (2019) History of Problems with Anesthesia: No Social History Social History Are you a primary family day care provider to a significant other at home: No Do you presently have visiting nurse or other home services: No Patient Tobacco Use Status: Former Tobacco user Tobacco use type: Cigarette Smoked in Last 30 Days: No Use of substances other than those prescribed or required for medical reasons: No Have you been hit, kicked, punched, or otherwise hurt by someone within the past year? If so, by whom?: No Are you DNR?: No Advance Directives: No (will bring dos) Advance Directives Information Provided: Yes Advance Directives on File: No Recently lost weight without trying: No Poor oral hygiene: No (permanent implants) Meds Allergies Allergy/AdvReac Type Severity Reaction Status Date / Time No Known Allergies Allergy Verified 10/19/24 14:32 Home Medications ?Medication ?Instructions ?Recorded ?Confirmed ?Last Taken ?Type ascorbic acid (vitamin C) 1,000 mg 1,000 mg PO DAILY 10/19/24 10/19/24 Unknown History tablet (Vitamin C) cholecalciferol (vitamin D3) 25 25 mcg PO DAILY 10/19/24 10/19/24 Unknown History mcg (1,000 unit) tablet (Vitamin D3) metformin 500 mg tablet 500 mg PO BID 10/19/24 10/19/24 Unknown History omega 5-eqh-uqu-fish oil 1,000 mg 1 cap PO DAILY 10/19/24 10/19/24 10/13/24 History (120 mg-180 mg) capsule (Fish Oil) Exam Airway Mallampati Class: II TM Dist: >3cm Neck ROM: Full Heart: rrr Lungs: cta Assessment and Plan Assessment Anesthesia Assessment: Anesthesia Plan Discussed Final Anesthetic Review Family History of Problems with Anesthesia: No History of Problems with Anesthesia: No NPO: Yes ASA Class: II Final Preanesthetic Review: No Changes in Pt Med Stat, Meds/Allgs Chart Reviewed, Consent Obtained/Reviewed and Anes Risks/Benef Reviewed Patient Risk: Low Procedure Risk: Low Anesthetic Plan Anesthetic Plan: MAC: Disposition: Standard PACU
[2024-10-21 12:45] VITALS: BMI 24.2
--- NOTE | 2024-10-21 12:45 | MHC.SHP ---
Pre-Procedural Eval Section A - 24 Hr Update-Section A only Date of Service: 10/21/24 The patient is an INPATIENT: No Changes since office visit: No Cold of Flu in the past 2 weeks, No New Medical Problems, No Changes in Medication and No Patient answered all questions The patient has been examined within 24 hours of the surgical procedure. The History & Physical has been completed within 30 days and I have reviewed it.: Yes Section B - Complete if H&P > 30 days Chief Complaint: Encounter for screening for malignant neoplasm of Allergies: Allergies Allergy/AdvReac Type Severity Reaction Status Date / Time No Known Allergies Allergy Verified 10/19/24 14:32 Plan I have reviewed the history and physical and performed a pertinent physical examination on my patient. No changes have occurred unless specified. Time Spent With Patient Time: Total time managing care of this patient today ____ minutes.
[2024-10-21 12:59] VITALS: BP 145/72; PULSE 56; RESP 16; TEMP 36.2; O2SAT 98
[2024-10-21] MEDS: Lactated Ringers 1,000 ML 100 ML IVCONT (13:13)
[2024-10-21 14:10] VITALS: BP 113/63; PULSE 65; RESP 16; TEMP 36.3; O2SAT 98
[2024-10-21 14:25] VITALS: BP 127/68; PULSE 55; RESP 18; TEMP 36.7; O2SAT 99
[2024-10-21 15:18] LABS: Glucose, Whole Blood 116 mg/dL (60-115)
--- NOTE | 2024-10-21 21:49 | OP_ITS ---
DATE OF SERVICE: 10/21/2024 SURGEON: Dung Albright MD INDICATIONS: Colon cancer screening and prior history of adenomatous colon polyps. PREOPERATIVE DIAGNOSIS: POSTOPERATIVE DIAGNOSIS: PROCEDURE PERFORMED: Colonoscopy to the terminal ileum with snare polypectomy. ESTIMATED BLOOD LOSS: COMPLICATIONS: ANESTHESIA: Monitored anesthesia care. ASSISTANTS: SPECIMENS: DESCRIPTION OF PROCEDURE: A history and physical was performed. The risks and benefits of the procedure were explained to the patient and informed consent was obtained. The patient was placed in the left lateral decubitus position. A digital rectal exam was performed and did show some internal hemorrhoids. The Olympus pediatric video colonoscope was introduced into the rectum and advanced to the cecum. The cecum was identified by transillumination, palpation, and identification of ileocecal valve. Examination was performed and the scope was removed. He tolerated the procedure well and was returned to recovery area in stable condition. FINDINGS: The terminal ileum was examined and appeared normal. The visualized colonic mucosa was normal. The quality of the prep was fair with some adherent stool in the cecum, proximal right colon, and descending colon. This was washed and suctioned as best possible. A single polyp measuring approximately 5 mm was identified at about 35 cm. This was removed with a cold snare and recovered via suction. No other polyps were identified. The sigmoid was somewhat tortuous. Retroflexed examination showed moderate-sized internal hemorrhoids. IMPRESSION: Colon polyp. RECOMMENDATION: Follow up the biopsy results. MD BRO Isaacs/PAMELAL / [id number]
== END 2024-10-21 14:37 | disposition home or self-care (01) ==
PROVIDERS: PCP Internal Medicine; Visit Provider Internal Medicine Gastroenterology
PROC: 0DJD8ZZ Inspection of Lower Intestinal Tract, Via Natural or Artificial Opening Endoscopic (ICD-10-PCS; CPT 45378; principal; 2024-10-21 13:50)
DX: Z12.11 Encounter for screening for malignant neoplasm of colon (principal); Z86.0101 Personal history of adenomatous and serrated colon polyps; D12.5 Benign neoplasm of sigmoid colon; K64.8 Other hemorrhoids; E11.9 Type 2 diabetes mellitus without complications; N20.0 Calculus of kidney; N40.0 Benign prostatic hyperplasia without lower urinary tract symptoms; M85.80 Other specified disorders of bone density and structure, unspecified site; E55.9 Vitamin D deficiency, unspecified; Z79.84 Long term (current) use of oral hypoglycemic drugs; Z79.899 Other long term (current) drug therapy; Z98.890 Other specified postprocedural states
CPT/HCPCS: 45385; 82947; 88305; J2704